=== PATIENT | female | born 1960 | race Caucasian/White ===

== ENCOUNTER 2016-10-02 10:13 | Outpatient (CLI) | payer MEDICAID | END 2016-10-02 10:14 | disposition home or self-care (01) | DX: Z12.31 Encounter for screening mammogram for malignant neoplasm of breast (principal); Z80.3 Family history of malignant neoplasm of breast; Z98.82 Breast implant status ==

== ENCOUNTER 2017-08-10 08:00 | Outpatient (CLI) | payer MEDICAID ==
[2017-08-10 18:43] LABS: THYROID STIMULATING HORMONE 6.14 uIU/mL (0.34-5.60)
== END 2017-08-10 08:01 | disposition home or self-care (01) ==
LOC: LAB.S 08:00
PROVIDERS: ATTEND Nurse Practitioner Family
DX: E03.9 Hypothyroidism, unspecified (principal)
CPT/HCPCS: 36415; 84439; 84443

== ENCOUNTER 2017-09-24 07:56 | Outpatient (CLI) | payer MEDICAID ==
--- NOTE | 2017-09-25 16:57 | DEXA Report ---
DEXA SCAN: 09/24/2017 CLINICAL INDICATION: Long-term steroid use. TECHNIQUE: Dual energy x-ray absorptiometry (DXA) was performed on a [employer] system. Regions measured are the AP spine, femoral neck, and, if needed, forearm. COMPARISON: None. In accordance with the International Society for Clinical Densitometry (ISCD) guidelines, data from previous exams may be reanalyzed using current recommendations and techniques. This is done to allow a more accurate basis for comparison with the current study. FINDINGS The data for the lumbar spine is as follows: REGION BMD (g/cm/cm) T-SCORE Z-SCORE L1 1.184 0.4 0.8 L2 1.318 1.0 1.3 L3 1.435 2.0 2.3 L4 1.637 3.6 4.0 TOTAL L1-L4 1.402 1.8 2.2 NOTE: All evaluable vertebrae are used for classification. The data for the hip is as follows: REGION BMD (g/cm/cm) T-SCORE Z-SCORE Neck 0.858 -1.3 -0.6 TOTAL 0.898 -0.9 -0.6 NOTE: The femoral neck or total proximal femur, whichever is lowest, is used for classification. IMPRESSION THE WHO CLASSIFICATION BASED ON THE INTERNATIONAL REFERENCE STANDARD IS OSTEOPENIA (REFERENCE LEFT FEMORAL NECK). THE FRACTURE RISK IS INCREASED. RECOMMENDATION: Patients with diagnosis of osteoporosis or osteopenia should have regular bone mineral density assessment. For those eligible for Medicare, routine testing is allowed once every 2 years. Testing frequency can be increased for patients who have rapidly progressing disease or for those who are receiving medical therapy to restore bone mass. COMMENT: World Health Organization (WHO) definitions for osteoporosis and osteopenia: NORMAL BMD: T-score at 1.0 or higher, fracture risk is low. OSTEOPENIA BMD: T-score between 1.0 and -2.5, fracture risk is increased. OSTEOPOROSIS BMD: T-score at 2.5 or lower, fracture risk high. National Osteoporosis Foundation recommends: 1. Obtain adequate dietary calcium (at least 1200 mg per day) and vitamin D (400 -800 international units per day). 2. Participate, as appropriate, in regular weightbearing and muscle- strengthening exercise. 3. Avoid tobacco use and reduce alcohol and caffeine intake. 4. For more detailed information see the website at www.NOF.org. TD: 09/24/2017 10:45 MTDD
== END 2017-09-24 07:57 | disposition home or self-care (01) ==
LOC: DI 07:56
PROVIDERS: ATTEND Nurse Practitioner Family
DX: M85.88 Other specified disorders of bone density and structure, other site (principal)
CPT/HCPCS: 77080

== ENCOUNTER 2018-01-18 08:00 | Outpatient (CLI) | payer MEDICAID | END 2018-01-18 08:01 | LOC: LAB.S 08:00 | PROVIDERS: ATTEND Nurse Practitioner Family | DX: J03.90 Acute tonsillitis, unspecified (principal) | CPT/HCPCS: 87070 ==

== ENCOUNTER 2018-05-07 15:25 | Emergency (ER) | payer MEDICAID ==
--- NOTE | 2018-05-07 16:25 | XRAY Report ---
Procedure Date: 05/07/2018 Accession Number: [id number] / [id number] Procedure: XR - Knee 3 View LT CPT Code: FULL RESULT: EXAM: LEFT KNEE RADIOGRAPHY EXAM DATE: 05/07/2018 03:57 PM. CLINICAL HISTORY: Fall, subpatellar laceration. Pain. COMPARISON: None. TECHNIQUE: 3 views. FINDINGS: Bones: Normal. No fractures or bone lesions. Joints: Left total knee replacement. Surgical hardware intact without migration. Mild genu valgum. Small effusion. Soft Tissues: Bandage artifact anterior to the proximal tibia. IMPRESSION: 1. No acute bony abnormality. 2. Small effusion. RADIA
[2018-05-07] MEDS ORDERED: TETANUS/DIPHTHERIA/PERTUSSIS 0.5 ML SYRINGE IM ONE (16:35)
[2018-05-07] MEDS ORDERED: BACITRACIN OINT TOP STA (17:33)
--- NOTE | 2018-05-07 17:33 | ED Physician Documentation ---
PD HPI Fall - Stated complaint Stated Complaint: FALL/L LEG LAC - Chief complaint Chief Complaint: Laceration - History obtained from History obtained from: Patient - History of Present Illness Mechanism of injury: Slipped Fall distance: Standing position Where injury occurred: Home Timing - onset: How many hours ago (1) Injury(ies) location: Left Lower Extremity - Additional information Additional information: The patient is a 57-year-old female who slipped on her porch falling to her knees, and impacting her left knee on flagstone and broken glass. She presents now with a large laceration to the infrapatellar region of her left knee. She denies any other injuries. She has been ambulatory since the incident occurred. She does not recall her last tetanus booster. Review of Systems Constitutional: denies: Fever Skin: reports: Laceration (s) Musculoskeletal: denies: Neck pain, Back pain Neurologic: denies: Head injury PD PAST MEDICAL HISTORY - Past Medical History Cardiovascular: None Respiratory: None Endocrine/Autoimmune: HyPOthyroidism GI: Hepatitis : None HEENT: None Psych: None Musculoskeletal: Osteoarthritis Derm: None - Past Surgical History General: Cholecystectomy, Colonoscopy Ortho: Knee replacement, ACL reconstruction /[employer]: Tubal ligation, Breast implants - Present Medications Home Medications: Ambulatory Orders Medication Instructions Recorded Confirmed Levothyroxine [Synthroid] 100 mcg PO QDAC 02/06/14 07/18/14 Methadone 2.5 mg PO Q6HR 02/06/14 07/18/14 oxyCODONE [Roxicodone] 5 mg PO 3-4XD 02/06/14 07/18/14 - Allergies Allergies/Adverse Reactions: Allergies Allergy/AdvReac Type Severity Reaction Status Date / Time No Known Drug Allergies Allergy Verified 05/07/18 15:39 - Social History Does the pt smoke?: No Smoking Status: Never smoker PD ED PE NORMAL - Vitals Vital signs reviewed: Yes (hypertensive) - General General: Alert and oriented X 3, Well developed/nourished - HEENT HEENT: Atraumatic - Neck Neck: No bony TTP - Cardiac Cardiac: RRR - Respiratory Respiratory: No respiratory distress - Back Back: No spinal TTP - Derm Derm: No rash - Neuro Neuro: Alert and oriented X 3, No motor deficit, No sensory deficit Results - Vitals Vitals: Oxygen O2 Source Room air - Rads (name of study) right knee Radiology: Prelim report reviewed, EMP read contemporaneously, See rad report ( No acute bony abnormality. Small effusion.) Procedures - Laceration (location) left knee Length in cm: 5 Wound type: Irregular, Into muscle, Clean Neurovascular status: Sensory intact, Motor intact, Vascular intact Tendon involvement: Tendon intact Anesthesia: Lidocaine 1% with epi Wound Preparation: Betadine, Irrigated copiously NS, Wound explored, To the base , FB identified, FB removed Skin layer closure: Nylon, Interrupted, Size #-0 - enter number (4), Sutures - enter # (15) Other: Patient tolerated well, No complications, Neurovascular intact, Dressing applied, Tetanus booster given Complexity: Intermediate PD MEDICAL DECISION MAKING - ED course Complexity details: reviewed results, re-evaluated patient, considered differential, d/w patient, d/w family ED course: The patient's presentation is significant for a 5 cm irregular laceration at the infrapatellar aspect of the left knee. X-ray reveals no bony abnormality, and no radiographic foreign body is seen on the imaging study. However a glass fragment was found on exploration of the wound, and was removed. Treatment in the emergency department included thorough cleaning of the wound after local anesthetic. The wound is repaired with 4-0 nylon simple sutures. Antibiotic ointment and gauze dressing was applied. Tetanus booster was administered. I discussed with the patient and her mother the expected course of injury, appropriate wound care and typing for suture removal, as well as potentially worrisome signs or symptoms that should prompt reevaluation in the department. - Sepsis Event Vital Signs: Oxygen O2 Source Room air Departure - Departure Disposition: 01 Home, Self Care Clinical Impression: Laceration Condition: Stable Instructions: ED Laceration Ext Sutr Stap Tape Follow-Up: Sola Fajardo ARNP [Primary Care Provider] - Comments: Keep the wound clean, and apply antibiotic ointment daily. You can use Tylenol or ibuprofen as needed for discomfort. Follow-up for suture removal in 12-14 days. Return to the emergency department if you develop any sign of infection, or otherwise worsening symptoms. Discharge Date/Time: 05/07/18 18:05
[2018-05-07 17:59] VITALS: BP 162/96
== END 2018-05-07 18:05 | disposition home or self-care (01) ==
LOC: ED 15:25
DX: S81.012A Laceration without foreign body, left knee, initial encounter (principal); W01.110A Fall on same level from slipping, tripping and stumbling with subsequent striking against sharp glass, initial encounter; Y92.008 Other place in unspecified non-institutional (private) residence as the place of occurrence of the external cause; E03.9 Hypothyroidism, unspecified; Z96.659 Presence of unspecified artificial knee joint; Z23 Encounter for immunization
CPT/HCPCS: 12032; 73562; 90471; 90715; 99282; 99283; A9270

== ENCOUNTER 2018-06-14 10:47 | Outpatient (CLI) | payer MEDICAID ==
[2018-06-14 18:15] LABS: THYROID STIMULATING HORMONE 1.14 uIU/mL (0.34-5.60)
[2018-06-14 18:17] LABS: FREE T4 (FREE THYROXINE) 0.95 ng/dL (0.58-1.64)
== END 2018-06-14 10:48 | disposition home or self-care (01) ==
LOC: LAB.S 10:47
PROVIDERS: ATTEND Nurse Practitioner Family
DX: R03.0 Elevated blood-pressure reading, without diagnosis of hypertension (principal); E03.9 Hypothyroidism, unspecified
CPT/HCPCS: 36415; 84439; 84443

== ENCOUNTER 2020-11-22 19:39 | Outpatient (CLI) | payer MEDICAID | END 2020-11-22 19:40 | disposition home or self-care (01) | LOC: COV 19:39 | PROVIDERS: ATTEND Surgery | DX: Z01.812 Encounter for preprocedural laboratory examination (principal); K42.9 Umbilical hernia without obstruction or gangrene; K64.4 Residual hemorrhoidal skin tags; Z20.822 Contact with and (suspected) exposure to COVID-19 ==

== ENCOUNTER 2020-11-26 06:18 | Day surgery (SDC) | payer MEDICAID ==
[2020-11-26] MEDS ORDERED: ceFAZolin 2 GM/50 ML 2 GM/50 ML BAG IV ONE (07:37)
[2020-11-26] MEDS ORDERED: LACTATED RINGERS 1,000 ML IV ONE ×2 (07:38→10:57)
[2020-11-26] MEDS ORDERED: SCOPOLAMINE PATCH TOP ONE ×2 (08:24→09:05)
--- NOTE | 2020-11-26 08:24 | ANESTHESIA ---
Pre-Anesthesia VS, & Labs - Diagnosis recurrent umbilical hernia, painful anal skin tag - Procedure Recurrent umbilical hernia repair with mesh, removal of anal skin tag Vital Signs: Temp Pulse Resp BP Pulse Ox 36.7 C 74 18 131/91 H 97 11/26/20 07:20 11/26/20 07:20 11/26/20 07:20 11/26/20 07:20 11/26/20 07:20 Height: 5 ft 6 in Weight (kg): 73.3 kg Body Mass Index: 26.0 BMI Classification: Overweight - NPO >8 hours - Is Patient ?: No Home Medications and Allergies Home Medications: Ambulatory Orders Finasteride [Proscar] 5 mg PO DAILY 11/21/20 Meloxicam [Mobic] 15 mg PO DAILY 11/21/20 Levothyroxine [Synthroid] 112 mcg PO QDAC 02/06/14 Finasteride [Proscar] 5 mg PO DAILY 11/21/20 Meloxicam [Mobic] 15 mg PO DAILY 11/21/20 Allergies/Adverse Reactions: Allergies Allergy/AdvReac Type Severity Reaction Status Date / Time No Known Drug Allergies Allergy Verified 11/26/20 07:50 Anes History & Medical History - Anesthetic History Anesthesia Complications: reports: Post-Operative Nausea/Vomiting - Medical History Cardiovascular: reports: None Pulmonary: reports: None Gastrointestinal: reports: Hepatitis (Hep C, s/p treatment) Urinary: reports: None Neuro: reports: None Musculoskeletal: reports: Osteoarthritis Endocrine/Autoimmune: reports: HyPOthyroidism Blood Disorders: reports: None Skin: reports: None Smoking Status: Never smoker Psychosocial: reports: No issues indicated History of Cancer?: No - Surgical History General: reports: Cholecystectomy, Colonoscopy, Other Gynecologic: reports: Tubal ligation, Breast implants Orthopedic: reports: Knee replacement, ACL reconstruction Exam General: Alert, Oriented x3, Cooperative, No acute distress Dental: WNL Mouth Openin Fingerbreadth Neck Mobility: Normal Mallampati classification: II Thyromental Distance: 4-6 cm Respiratory: Lungs clear, Normal breath sounds, No respiratory distress, No accessory muscle use Cardiovascular: Regular rate, Normal S1, Normal S2, No murmurs Mental/Cognitive Status: Alert/Oriented X3, Normal for patient Plan Anesthesia Type: General Consent for Procedure(s) Verified and Reviewed: Yes Code Status: Attempt Resuscitation ASA classification: 2-Mild systemic disease Is this case an emergency?: No
[2020-11-26] MEDS ORDERED: ePHEDrine 50 MG/ML VIAL IVP PRN (08:55)
[2020-11-26] MEDS ORDERED: MORPHINE 2 MG/ML CARPUJECT IVP PRN (08:55)
[2020-11-26] MEDS ORDERED: HYDROmorphone 0.5 MG/0.5 ML SYRINGE IVP PRN (08:55)
[2020-11-26] MEDS ORDERED: NALOXONE 0.4 MG/ML VIAL IVP PRN (08:55)
[2020-11-26] MEDS ORDERED: fentaNYL 100 MCG/2 ML VIAL IVP PRN (08:55)
[2020-11-26] MEDS ORDERED: ATROPINE ABBOJECT 1 MG/10 ML SYRINGE IVP PRN (08:55)
[2020-11-26] MEDS ORDERED: ONDANSETRON 4 MG/2 ML VIAL IVP PRN ×2 (08:55→11:03)
[2020-11-26] MEDS ORDERED: METOCLOPRAMIDE 10 MG/2 ML VIAL IVP PRN (08:55)
[2020-11-26] MEDS ORDERED: BUPIVACAINE 0.5% PF 30 ML VIAL ONE (08:58)
[2020-11-26] MEDS ORDERED: LIDOCAINE 2%-EPI 1:100000 20 ML MDV ONE (08:59)
[2020-11-26] MEDS ORDERED: LACTATED RINGERS 1,000 ML IV SCH (09:00)
[2020-11-26] MEDS ORDERED: PROPOFOL 200 MG/20 ML VIAL IVP ONE (09:10)
[2020-11-26] MEDS ORDERED: LIDOCAINE-MPF 2% 5 ML VIAL ONE (09:10)
[2020-11-26] MEDS ORDERED: MIDAZOLAM 2 MG/2 ML VIAL ONE (09:10)
[2020-11-26] MEDS ORDERED: fentaNYL 100 MCG/2 ML VIAL ONE (09:10)
[2020-11-26] MEDS ORDERED: BUPIVACAINE 0.5% PF 30 ML VIAL INFIL ONE ×2 (09:43)
[2020-11-26] MEDS ORDERED: LIDOCAINE 2%-EPI 1:100000 20 ML MDV SUBQ ONE ×2 (09:43)
[2020-11-26] MEDS ORDERED: ONDANSETRON 4 MG/2 ML VIAL ONE (09:48)
[2020-11-26] MEDS ORDERED: DEXAMETHASONE 4 MG/ML VIAL ONE (09:48)
[2020-11-26] MEDS ORDERED: ceFAZolin 1 GM VIAL IR ONE (10:21)
[2020-11-26] MEDS ORDERED: ceFAZolin 1 GM VIAL ONE (10:31)
[2020-11-26] MEDS ORDERED: LIDOCAINE OINTMENT 5% 35.44 GM TUBE TOP ONE (10:41)
[2020-11-26] MEDS ORDERED: LIDOCAINE JELLY 2% 6 ML JEL.PF.APP ONE (10:49)
--- NOTE | 2020-11-26 10:49 | OPERATIVE REPORT ---
Operative Report - General Procedure Date: 11/26/20 Planned Procedure: Repair of recurrent umbilical hernia Examination under anesthesia with excision of anal skin tag Pre-Op Diagnosis: Same Procedure Performed: Repair of extension/recurrent ventral hernia Examination under anesthesia with excision of skin tag and external hemorrhoidectomy Post Op Diagnosis: Same - Procedure Note Primary Surgeon: Eloisa Anesthesia Provider: MICKY Jean Baptiste Anesthesia Technique: General LMA, Local Pathology: None Estimated Blood Loss (mL): 10 Findings: 2 cm recurrence of the ventral hernia beginning at the inferior limit of the intact existing mesh Skin tag at 5 o'clock associated with an enlarged external hemorrhoid Complications: None apparent - Other Other Information/Narrative: After obtaining informed consent, the patient is brought to the operating room and placed in the supine position on the operating table. Following successful induction of general anesthesia, the legs were placed in Fletcher stirrups and the patient was placed in lithotomy position.Following placement of appropriate monitors and padding of all bony prominences, the abdomen and perineum were prepped and draped in the standard surgical fashion. A timeout was held per scope protocol. All elements of the surgical safety checklist were followed before, during, and after the procedure. We began the procedure by infiltrating a mixture of local anesthetics directly over the defect. The existing incision was recreated and carried down through the skin and subcutaneous tissue. The abdomen was entered under direct vision revealing the existing [address] superiorly without folding and a 1-1/2 cm hernia inferiorly in the midline from the most inferior edge of the existing mesh. Minimal adhesive disease was encountered. Filmy adhesions were easily swept from the surface abdominal wall.Because the existing mesh was still in good position, I elected to leave it in place.The recurrence was repaired with an 8 cm portion of ventral Melecio ST patch.This was tacked with 2-0 Prolene suture in 4 quadrants and sewn into place with interrupted Vicryl suture.The most superior tach went through the existing mesh and into the fascia holding the 2 pieces of mesh together.The mesh was then sutured in a circumferential fashion to the fascia using 0 Vicryl suture.The midline fascia was then closed with interrupted 0 Vicryl suture.The skin incision was closed in layers recreating the umbilicus.Dermabond was applied to the skin. We turned our attention to the perianal region.Examination revealed 1 large skin tag at the 5 o'clock position with an associated enlarged external hemorrhoid.Area was anesthetized with local anesthetic. An elliptical incision was created around the skin tag and Metzenbaum scissors used to dissect the associated external hemorrhoid from the underlying muscle. This tissue was notably fibrous and scarred with minimal blood supply.The existing defect was then closed with interrupted 3-0 chromic suture. All sponge, needle, and instrument counts were correct at the conclusion of the case.The perianal wound was dressed with 5% lidocaine ointment and a peripad appliedThe patient was allowed to wake from anesthesia without difficulty and taken to the postanesthesia care unit in good condition.
[2020-11-26] MEDS ORDERED: LIDOCAINE OINTMENT 5% 35.44 GM TUBE ONE (10:51)
--- NOTE | 2020-11-26 11:00 | ANESTHESIA POST OP EVALUATION ---
Anesthesia Post Eval - Post Anesthesia Eval Vitals: Last Vital Signs Temp 36.7 C 11/26/20 07:20 Pulse 74 11/26/20 07:20 Resp 18 11/26/20 07:20 BP 131/91 H 11/26/20 07:20 Pulse Ox 97 11/26/20 07:20 CV Function Including HR & BP: positive: Stable Pain Control: positive: Satisfactory Nausea & Vomiting: positive: Negative Mental Status: positive: Patient Participates Respiratory Status: Airway Patent Hydration Status: Satisfactory Anesthesia Complications: positive: None
[2020-11-26] MEDS ORDERED: IBUPROFEN 600 MG TABLET PO PRN (11:03)
[2020-11-26] MEDS ORDERED: oxyCODONE 5 MG TABLET PO PRN (11:03)
[2020-11-26] MEDS ORDERED: ACETAMINOPHEN 325 MG TABLET PO PRN (11:03)
[2020-11-26 11:30] VITALS: BP 140/81
[2020-11-26] MEDS ORDERED: oxyCODONE 5 MG TABLET ONE (11:39)
== END 2020-11-26 06:19 | disposition home or self-care (01) ==
LOC: SDS 06:18
PROVIDERS: ATTEND Surgery
DX: K43.2 Incisional hernia without obstruction or gangrene (principal); K64.4 Residual hemorrhoidal skin tags; E03.9 Hypothyroidism, unspecified; E66.3 Overweight; Z68.26 Body mass index [BMI] 26.0-26.9, adult
CPT/HCPCS: 46999; 49565; 49568; A9270; C1781; J0690; J3490; J7120

== ENCOUNTER 2021-01-01 10:12 | Outpatient (CLI) | payer MEDICAID ==
[2021-01-01 15:02] LABS: BASOPHILS % (AUTO) 0.6 %; EOSINOPHILS # (AUTO) 0.2 10^3/uL (0.0-0.7); EOSINOPHILS % (AUTO) 2.3 %; HCT - HEMATOCRIT 48.1 % (37.0-47.0); HGB - HEMOGLOBIN 15.1 g/dL (12.0-16.0); LYMPHOCYTES # (AUTO) 1.5 10^3/uL (1.5-3.5); LYMPHOCYTES % (AUTO) 22.2 %; MEAN CORPUSCULAR HEMOGLOBIN 29.8 pg (27.0-31.0); MEAN CORPUSCULAR HGB CONC 31.4 g/dL (32.0-36.0); MEAN CORPUSCULAR VOLUME 94.9 fL (81.0-99.0); MEAN PLATELET VOLUME 10.4 fL (7.9-10.8); MONOCYTES # (AUTO) 0.6 10^3/uL (0.0-1.0); MONOCYTES % (AUTO) 9.4 %; NEUTROPHILS # (AUTO) 4.4 10^3/uL (1.5-6.6); NEUTROPHILS % (AUTO) 64.6 %; PLT - PLATELET COUNT 382 10^3/uL (130-450); RED BLOOD COUNT 5.07 10^6/uL (4.20-5.40); RED CELL DISTRIBUTION WIDTH 14.3 % (12.0-15.0); WHITE BLOOD COUNT 6.8 x10^3/uL (4.8-10.8)
[2021-01-01 15:43] LABS: ALBUMIN 3.8 g/dL (3.2-5.5); ALBUMIN/GLOBULIN RATIO 1.2 (1.0-2.2); BILIRUBIN,TOTAL 0.7 mg/dL (0.2-1.0); CALCIUM 9.5 mg/dL (8.5-10.3); CREATININE 0.9 mg/dL (0.4-1.0); POTASSIUM 4.3 mmol/L (3.5-5.0); TOTAL PROTEIN 7.1 g/dL (6.7-8.2)
== END 2021-01-01 10:13 | disposition home or self-care (01) ==
LOC: LAB.S 10:12
PROVIDERS: ATTEND Internal Medicine
DX: Z79.899 Other long term (current) drug therapy (principal)
CPT/HCPCS: 36415; 80053; 85025

== ENCOUNTER 2021-01-14 09:43 | Outpatient (CLI) | payer MEDICAID ==
--- NOTE | 2021-01-14 15:12 | DEXA Report ---
PROCEDURE: Dexa Spine and/or Hip INDICATIONS: OSTEOPENIA TECHNIQUE: Dual energy x-ray absorptiometry (DXA) was performed on a [employer] System. Regions measur ed are the AP Spine, femoral neck, and if needed forearm. COMPARISON: DEXA 09/16/2017 FINDINGS: Lumbar Spine: Bone Mineral Density 1.361 g/cm/cm,T score 1.6, normal, compared to 1.8 on prior exam. Left Hip: Bone Mineral Density 0.915 g/cm/cm,T score -0.7, normal compared to -0.9. Left Femoral Neck: Bone Mineral Density 0.864 g/cm/cm, T score -1.3, compared to -1.3, mild osteopenia (T score greater or equal to -1.0: NORMAL) (T score from -1.1 to -2.4: OSTEOPENIA) (T score less than or equal to -2.5 to: OSTEOPOROSIS) Impression: Stable appearance of mild osteopenia within the left femoral neck. Patients with diagnosis of osteoporosis or osteopenia should have regular bone mineral density assess ment. For those eligible for Medicare, routine testing is allowed once every 2 years. Testing frequ ency can be increased for patients who have rapidly progressing disease or for those who are receivin g medical therapy to restore bone mass. Reviewed by: Yeny Abel MD on 01/14/2021 3:11 PM PDT Approved by: Yeny Abel MD on 01/14/2021 3:11 PM PDT Station ID: [id number]
== END 2021-01-14 09:44 | disposition home or self-care (01) ==
LOC: DI 09:43
PROVIDERS: ATTEND Internal Medicine
DX: M85.88 Other specified disorders of bone density and structure, other site (principal)